=== PATIENT | female | born 1990 | race Two or more races ===

== ENCOUNTER 2017-05-05 14:03 | Outpatient (CLI) | payer OTHER | END 2017-05-05 14:35 | disposition home or self-care (01) | LOC: RAD 501 14:03 | DX: M25.571 Pain in right ankle and joints of right foot (principal); M25.562 Pain in left knee ==

== ENCOUNTER 2021-06-06 12:18 | Outpatient (CLI) | payer OTHER | END 2021-06-06 12:28 | disposition home or self-care (01) | LOC: RAD 12:18 | PROVIDERS: ATTEND Orthopaedic Surgery | DX: M25.561 Pain in right knee (principal) ==

== ENCOUNTER 2021-07-18 10:13 | Outpatient (CLI) | payer OTHER | END 2021-07-18 10:23 | disposition home or self-care (01) | LOC: RAD 10:13 | PROVIDERS: ATTEND Orthopaedic Surgery | DX: M25.571 Pain in right ankle and joints of right foot (principal) ==

== ENCOUNTER 2021-08-10 07:04 | Outpatient (CLI) | payer OTHER | END 2021-08-10 07:30 | disposition home or self-care (01) | LOC: LAB 07:04 | PROVIDERS: ATTEND Orthopaedic Surgery | DX: D64.9 Anemia, unspecified (principal); E88.9 Metabolic disorder, unspecified; D68.8 Other specified coagulation defects; N39.0 Urinary tract infection, site not specified; A49.02 Methicillin resistant Staphylococcus aureus infection, unspecified site; E11.9 Type 2 diabetes mellitus without complications; I10 Essential (primary) hypertension; I49.9 Cardiac arrhythmia, unspecified; Z76.89 Persons encountering health services in other specified circumstances ==

== ENCOUNTER 2021-08-17 11:15 | Day surgery (SDC) | payer OTHER ==
[~2021-08-17] VITALS: Ht 172.7 cm; Wt 92.5 kg
== END 2021-08-17 18:45 | disposition home or self-care (01) ==
LOC: CIR.AMB 11:15
PROVIDERS: ATTEND Orthopaedic Surgery
DX: M23.222 Derangement of posterior horn of medial meniscus due to old tear or injury, left knee (principal); M22.12 Recurrent subluxation of patella, left knee; M12.262 Villonodular synovitis (pigmented), left knee

== ENCOUNTER 2021-08-23 10:49 | Outpatient (CLI) | payer OTHER | END 2021-08-23 10:51 | disposition home or self-care (01) | LOC: SONOGRAMA 10:49 | PROVIDERS: ATTEND Pathology Anatomic Pathology & Clinical Pathology | DX: E04.1 Nontoxic single thyroid nodule (principal) ==

== ENCOUNTER 2021-12-18 06:45 | Outpatient (CLI) | payer OTHER | END 2021-12-18 06:46 | disposition home or self-care (01) | LOC: LAB 06:45 | PROVIDERS: ATTEND Orthopaedic Surgery | DX: I49.9 Cardiac arrhythmia, unspecified (principal); I10 Essential (primary) hypertension; Z76.89 Persons encountering health services in other specified circumstances; D64.9 Anemia, unspecified; E88.9 Metabolic disorder, unspecified; D68.8 Other specified coagulation defects; N39.0 Urinary tract infection, site not specified; A49.02 Methicillin resistant Staphylococcus aureus infection, unspecified site ==

== ENCOUNTER 2024-07-03 15:00 | Emergency (ER) | payer OTHER ==
[~2024-07-03] VITALS: Ht 172.7 cm; Wt 80.3 kg
[2024-07-03 17:28] LABS: HEMATOCRIT 40.5 % (36.0-45.00); HEMOGLOBIN 13.6 g/dL (12.0-15.00); MEAN CELL VOLUME 76.7 fL (80.00-100.00); MEAN CORPUSCULAR HEMOGLOBIN 25.7 pg (27.00-32.0); MEAN CORPUSCULAR HGB CONC 33.5 g/dl (32.0-36.0); PLATELET COUNT 301 K/uL (150-450); RED BLOOD COUNT 5.28 M/uL (4.00-6.00); RED CELL DISTRIBUTION WIDTH 15.4 % (11.5-14.5)
[2024-07-03 17:48] LABS: ERYTHROCYTE SEDIMENTATION RATE 88 mm/hr
[2024-07-03] MEDS ORDERED: CEFTRIAXONE SODIUM 1,000 MG VIAL IM STA (18:58)
[2024-07-03] MEDS ORDERED: KETOROLAC TROMETHAMINE 30 MG VIAL IM STA (18:58)
[2024-07-03] MEDS ORDERED: CEFTRIAXONE SODIUM 1,000 MG VIAL ONE (19:33)
[2024-07-03] MEDS ORDERED: KETOROLAC TROMETHAMINE 30 MG VIAL ONE (19:33)
[2024-07-03] MEDS ORDERED: CEFADROXIL500 MG PO (20:01)
== END 2024-07-03 20:06 | disposition home or self-care (01) ==
LOC: ER 15:02
DX: S93.492A Sprain of other ligament of left ankle, initial encounter (principal); L02.416 Cutaneous abscess of left lower limb